=== PATIENT | female | born 1995 | race African-American/Black ===

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

== ENCOUNTER 2018-07-12 21:44 | Emergency (ER) | payer MEDICAID ==
[~2018-07-12] VITALS: Ht 175.3 cm; Wt 122.5 kg
[2018-07-12 22:05] VITALS: BP 138/80
[2018-07-13] MEDS ORDERED: KETOROLAC TROMETH 60MG/2ML VIAL IM ONE (00:45)
== END 2018-07-13 01:15 | disposition home or self-care (01) ==
LOC: ER 21:46
DX: G43.909 Migraine, unspecified, not intractable, without status migrainosus (principal)
CPT/HCPCS: 70450; 81025